=== PATIENT | female | born 1970 | race Caucasian/White ===

== ENCOUNTER 2019-02-26 11:26 | Emergency (ER) | payer BC, OTHER ==
[~2019-02-26] VITALS: Ht 165.1 cm; Wt 90.7 kg
[~2019-02-26 11:26] MED LIST: DEXACIDIN EYE DR5 ML OP; NECON1 EAC1 PO
[2019-02-26] MEDS ORDERED: ASPIR 8181 MG PO (11:55)
[2019-02-26] MEDS ORDERED: LIPITOR 20 MG T20 M1 PO (11:55)
[2019-02-26] MEDS ORDERED: LISINOPRIL20 MG PO (11:55)
[2019-02-26 12:16] LABS: ABSOLUTE NEUTROPHILS 4.9 thou/uL (1.4-8.2); BASOPHILS 1.1 % (0.0-2.0); EOSINOPHILS 1.6 % (0.0-3.0); HEMATOCRIT 40.9 % (37.0-47.0); LYMPHOCYTES 23.6 % (24.0-44.0); MCH 31.4 pg (26.0-34.0); MCHC 34.3 g/dL (28.0-37.0); MCV 91.6 fL (80.0-100.0); MONOCYTES 9.1 % (1.0-8.0); PLATELET COUNT 310 thou/uL (150-400); POLYS 64.6 % (36.0-66.0); RBC 4.47 mil/uL (4.20-5.00); RDW 13.5 % (10.5-14.5); WBC 7.6 thou/uL (4.0-11.0)
[2019-02-26 12:43] LABS: ANION GAP 13 mmol/L (7-16); BUN 13 mg/dL (7-18); CALCIUM 9.3 mg/dL (8.5-10.1); CHLORIDE 101 mmol/L (98-107); CO2 23 mmol/L (21-32); CREATININE 0.9 mg/dL (0.6-1.0); GLUCOSE 95 mg/dL (74-106); POTASSIUM 3.8 mmol/L (3.5-5.1); SODIUM 137 mmol/L (136-145)
[2019-02-26 12:53] LABS: ALBUMIN 3.5 g/dL (3.4-5.0); MAGNESIUM 1.9 mg/dL (1.8-2.4); SGOT 24 U/L (15-37); SGPT 39 U/L (30-65); TOTAL BILIRUBIN 0.4 mg/dL (<0.1-1.0); TOTAL PROTEIN 7.7 g/dL (6.4-8.2); TROPONIN-I <0.06 ng/mL (<0.06)
[2019-02-26] MEDS ORDERED: PREDNISONE 20 M20 MG PO (15:16)
[2019-02-26] MEDS ORDERED: VALTREX1000 MG PO (15:16)
[2019-02-26 15:31] VITALS: BP 145/96
--- NOTE | 2019-02-27 15:09 | EKG ---
[address] [address] ELECTROCARDIOGRAM REPORT Name: KENAN GILMAN CARMELINA Room #: [facility]#: [id number] Admission: 02/26/19 Attend Phys: Discharge: 02/26/19 Date of : 66 Report #: [id number] THIS REPORT FOR: //name// [facility] ED Test Date: 2019-02-26 Test Time: 11:29:42 Pat Name: KENAN GILMAN Department: Room: Gender: F Sap Administrator: AMANDA : 1970 Requested By: Deshawn Naranjo Order Number: [id number] MD: Aden Cleveland Measurements Intervals [place] Rate: 126 P: 65 [place]: 160 QRS: 40 QRSD: 80 T: 32 QT: 310 QTc: 449 Interpretive Statements Sinus tachycardia Low voltage, precordial leads No previous ECG available for comparison Electronically Signed On 02-27-2019 15:09:04 CDT by Aden Cleveland [email or web address] <ELECTRONICALLY SIGNED> By: Aden Cleveland MD 02/27/19 [id number] Aden Cleveland MD /[email or web address]
== END 2019-02-26 15:32 | disposition home or self-care (01) ==
LOC: ER 11:26
PROVIDERS: Emergency Medicine
DX: G51.0 Bell's palsy (principal); F17.210 Nicotine dependence, cigarettes, uncomplicated